=== PATIENT | male | born 1970 | race Caucasian/White ===

== ENCOUNTER 2024-03-26 01:27 | Emergency (ER) | payer OTHER ==
[~2024-03-26] VITALS: Ht 167.6 cm; Wt 77.1 kg
[2024-03-26 01:45] VITALS: BP 144/93; PULSE 72; RESP 16; TEMP 98.5; O2SAT 98
[2024-03-26] MEDS: HYDROcodone/APAP 5/325 MG 1 TAB TAB PO ONE (03:20)
[2024-03-26] MEDS ORDERED: NAPR-337 PO (03:36)
== END 2024-03-26 03:41 | disposition home or self-care (01) ==
LOC: MED 01:27
DX: S83.8X1A Sprain of other specified parts of right knee, initial encounter (principal); Z79.899 Other long term (current) drug therapy; X58.XXXA Exposure to other specified factors, initial encounter; Y93.89 Activity, other specified; Y92.89 Other specified places as the place of occurrence of the external cause; Y99.8 Other external cause status
CPT/HCPCS: 73562; 99283